=== PATIENT | male | born 1980 | race Caucasian/White ===

== ENCOUNTER 2017-03-21 18:16 | Emergency (ER) | payer SELFPAY ==
[~2017-03-21] VITALS: Ht 175.2 cm; Wt 81.6 kg
[2017-03-21] MEDS ORDERED: NAPROSYN500 MG PO (19:09)
[2017-03-21] MEDS ORDERED: AMOXICILLIN500 M2 PO (19:09)
== END 2017-03-21 19:11 | disposition home or self-care (01) ==
LOC: ED 18:16
DX: K08.89 Other specified disorders of teeth and supporting structures (principal); F17.200 Nicotine dependence, unspecified, uncomplicated